=== PATIENT | female | born 1985 | race Caucasian/White ===

== ENCOUNTER 2016-11-01 08:55 | Day surgery (SDC) | payer OTHER ==
--- NOTE | 2016-11-01 08:00 | HP ---
DATE OF SURGERY: 11/01/2016 HISTORY OF PRESENT ILLNESS: The patient is a 31 year-old for a long time since second section a year or so ago that she has had a mass growth, a golf ball size, during menses. She did not have prior CT scan. Ever since the section she has had this lower abdominal mass that increases in size during her menstrual period. PAST MEDICAL HISTORY: Migraines, ovarian cysts during her second . PAST SURGICAL HISTORY: She had two sections in the past. MEDICATIONS: None currently according to the patient. ALLERGIES: NKDA. FAMILY HISTORY: Breast cancer, uterine cancer. SOCIAL HISTORY: No smoking or alcohol abuse. REVIEW OF SYSTEMS: Twelve systems reviewed per admission assessment. No chest pain or palpitations other systems negative or noncontributory as above and per preadmission questionnaire. PHYSICAL EXAMINATION: GENERAL: No acute distress. HEENT: Sclerae nonicteric. NECK: No JVD. CHEST: Equal excursion, nonlabored breathing. CVS: Regular rate and rhythm. ABDOMEN: Soft. There is density on the lateral edge of the section scar area. Question whether endometrioma versus fat necrosis versus atypical hernia. Otherwise no peritoneal signs. EXTREMITIES: No significant edema. NEURO: Alert, moving extremities symmetrically. No gross motor deficits noted. IMPRESSION: Symptomatic painful abdominal wall nodule whether endometrioma versus fat necrosis versus hernia or other etiology is unclear. Discussed options of CT scan versus exploration given the fact that it enlarges during menses question whether it is an endometrioma-type nodule versus fat necrosis versus other type of hernia. I feel she would benefit from abdominal wall exploration possible excision of mass, possible hernia repair if indicated possible mesh. Risks and benefits explained in detail including but not limited to bleeding or infection, small risk of hematoma or seroma formation or wound infection possibly requiring packing. She also understands what we excise likely will not recur but she could get other nodules or endometrioma. It could be due to change in hormones in menstrual period. She also understands should she have a hernia there would plan on repair possibly using mesh if indicated, risk if the mesh became infected likely need to be removed, overall risk of hernia recurrence if noted and repair, general risk of aches, pains, burning or numbness possible termite control servicer or chronic in nature. She understands as well as the general risk of anesthesia, deep venous thrombosis, pulmonary embolism, pneumonia but not limited to. She understands that even excision of this might not improve her aches and pains. She understands and agrees to the planned procedure and will proceed with abdominal wall exploration possible excision of mass, possible hernia repair with mesh if indicated.
[~2016-11-01 08:55] MED LIST: Lactated Ringers 1,000 ML IV ONE; Sensorcaine 0.25% 10 ML ONE
[2016-11-01] MEDS ORDERED: CEFAZOLIN 2 GM-D5W BAG** 2 GM/50 ML ML IV STA (09:21)
[2016-11-01] MEDS ORDERED: Lactated Ringers 1,000 ML IV SCH (09:30)
[2016-11-01] MEDS ORDERED: DIPRIVAN 200 MG/20 ML IV ONE (11:00)
[2016-11-01] MEDS ORDERED: Decadron 4 MG INJ IV ONE (11:00)
[2016-11-01] MEDS ORDERED: Quelicin Fliptop 200 MG/10 ML IV ONE (11:00)
[2016-11-01] MEDS ORDERED: TORAdol 30 mg Injection IV ONE (11:00)
[2016-11-01] MEDS ORDERED: BRIDION 200MG/2ML IV ONE (11:00)
[2016-11-01] MEDS ORDERED: Naropin 0.5% 30 ML VIAL IJ ONE (11:00)
[2016-11-01] MEDS ORDERED: Zemuron 100 MG/10 ML IV ONE (11:00)
[2016-11-01] MEDS ORDERED: SUBLIMAZE 100 MCG/2 ML IV ONE (11:00)
[2016-11-01] MEDS ORDERED: Zofran 4 MG/2 ML VIAL IV ONE (11:00)
[2016-11-01] MEDS ORDERED: Lactated Ringers 1,000 ML IV ONE (14:01)
[2016-11-01 15:24] VITALS: O2SAT 99
[2016-11-01 16:08] VITALS: BP 109/69; PULSE 72
--- NOTE | 2016-11-03 09:13 | OP ---
SURGERY DATE/TIME: 11/01/2016 1310 PREOPERATIVE DIAGNOSIS: Enlarging symptomatic abdominal wall painful nodule. POSTOPERATIVE DIAGNOSES: 1) Abdominal wall nodule (question endometrioma versus scar tissue) path pending, approximately 6 cm. 2) Small underlying ventral hernia. PROCEDURES: 1) Excisional biopsy of abdominal wall nodule (approximately 6 cm). 2) Repair of small ventral hernia (suture only). SURGEON: Dr. Fred Solomon. KIER OPERATOR: Rito Roe, Medical Student III. ANESTHESIA: General. ESTIMATED BLOOD LOSS: Minimal. INDICATIONS: As noted above. Risks and benefits explained in detail and not limited to and consent obtained. DESCRIPTION OF PROCEDURE AND FINDINGS: The patient is taken to the operating room. The area was confirmed with the patient in the preoperative holding area and taken to the operating room. General anesthesia introduced. The abdomen is prepped and draped in usual sterile fashion after official time out and no disagreement with the planned procedure. She had two prior section incisions down low. Spindle-shaped segment including some of the skin over the top of it. Dissection is carried down including part of the old scar dissecting down to the subcu. There was a separate lipomatous density about 2 cm over the top and this out and sent separately as a lipoma. Dissection carried deep circumferentially around this firm nodule slowly and carefully dissected off the underlying fascia and passed off. It measured about 6 cm in size. It was laid on the back table. It had some scar tissue. There was question of the fact that it was enlarging in size with her menstrual period whether it was an endometrioma-type nodule versus other scar. Either way dissection carried out all the way around it. There did not appear to be any residual material in the wound. There was a small herniated defect with small amount of fat in it. Small ventral hernia was very small and felt not to require mesh. It was felt best to close this with PDS suture as it was not enlarging in size. The incision was closed with running #0 PDS. Good hemostasis noted. Subcu irrigated out. Subcu then loosely reapproximated with some 3-0 Vicryl. Deep subcu loosely approximated with 3-0 Vicryl reducing the space as well as possible. Superficial subcu closed with 3-0 Vicryl. Skin closed with 4-0 Vicryl. Steri-Strips and sterile dressings applied. 0.25% Marcaine local injected along the skin incision and fascial defects. The patient tolerated the procedure well. There were no immediate complications. It should be noted that she had old scar reaction in the skin incision. Otherwise she tolerated the procedure well. There were no immediate complications. Findings discussed with the family out in the waiting area.
== END 2016-11-01 15:40 | disposition home or self-care (01) ==
LOC: SDC 08:55
PROVIDERS: ATTEND Surgery
PROC: 0WBF0ZX Excision of Abdominal Wall, Open Approach, Diagnostic (ICD-10-PCS; principal; 2016-11-01)
PROC: 0WQF0ZZ Repair Abdominal Wall, Open Approach (ICD-10-PCS; 2016-11-01)
DX: R22.2 Localized swelling, mass and lump, trunk (principal); R20.8 Other disturbances of skin sensation; K43.9 Ventral hernia without obstruction or gangrene
CPT/HCPCS: 00400; 00832; 36415; 64425; 76942; 88304; 88305; J0330; J0690; J1100; J1885; J2405; J2704; J2795; J3010